=== PATIENT | female | born 1950 | race African-American/Black ===

== ENCOUNTER 2019-05-15 07:59 | Outpatient (CLI) | payer MEDICARE ==
--- NOTE | 2019-05-15 08:48 | RAD ---
LEFT KNEE 4 VIEWS: Date: 05/15/19 HISTORY: Pain. COMPARISON: None. FINDINGS: Joint spaces are preserved. No fracture or malalignment. There is presumed enthesopathic change along the posterior proximal tibia. Correlate clinically. IMPRESSION: Presumed enthesopathic change along the posterior proximal tibia. Correlate clinically. Further evalu ation with MRI if clinically warranted. POS: CHLOE
== END 2019-05-15 08:00 | disposition home or self-care (01) ==
LOC: RAD-FRANK 07:59
PROVIDERS: ATTEND Nurse Practitioner Family
DX: M25.562 Pain in left knee (principal)

== ENCOUNTER 2019-05-17 11:22 | Emergency (ER) | payer MEDICARE | END 2019-05-17 13:15 | disposition home or self-care (01) | LOC: ERS 11:22 | DX: M79.605 Pain in left leg (principal); I10 Essential (primary) hypertension; M19.90 Unspecified osteoarthritis, unspecified site; Z79.899 Other long term (current) drug therapy; Z86.73 Personal history of transient ischemic attack (TIA), and cerebral infarction without residual deficits | CPT/HCPCS: 99283 ==

== ENCOUNTER 2019-11-10 00:54 | Emergency (ER) | payer MEDICAID, MEDICARE ==
[2019-11-10] MEDS ORDERED: Ondansetron ODT 4 MG TAB ONE (01:21)
[2019-11-10 01:23] LABS: #Basophils 0.1 thou/uL (0.0-0.2); #Eosinphils 0.1 thou/uL (0.0-0.7); #Lymphocytes 1.9 thou/uL (1.20-3.40); #Monocytes 0.4 thou/uL (0.11-0.59); #Neutrophils 3.3 thou/uL (1.40-6.50); %Basophils 1.5 % (0.0-1.0); %Eosinophils 1.8 % (0.0-10.0); %Lymphocytes 32.4 % (21.0-51.0); %Monocytes 7.4 % (0.0-10.0); %Neutrophils 56.8 % (42.0-75.0); Hemoglobin 13.5 g/dL (12.0-16.0); Mean Corpuscular Hemoglobin 30.6 pg (27.0-31.0); Mean Corpuscular Volume 92.7 fL (78.0-98.0); Mean Platelet Volume 8.2 fL (7.4-10.4); Platelet Count 190 thou/uL (130-400); RBC Distribution Width 12.1 % (11.5-14.5); White Blood Cell (WBC) Count 5.9 thou/uL (4.8-10.8)
[2019-11-10 01:44] LABS: ALT (SGPT) 14 U/L (8-55); AST (SGOT) 22 U/L (5-34); Alkaline Phosphatase 64 U/L (40-110); Anion Gap 13 mmol/L (10-20); BUN (Urea Nitrogen) 16 mg/dL (9.8-20.1); Bilirubin, Total 0.3 mg/dL (0.2-1.2); Calc. Creatinine Clearance 0 mL/min (70-130); Calcium 9.4 mg/dL (7.8-10.44); Carbon Dioxide 26 mmol/L (23-31); Chloride 103 mmol/L (98-107); Estimated GFR-MDRD Greater than 90; Globulin 3.3 g/dL (2.4-3.5); Glucose 100 mg/dL (80-115); Lipase 32 U/L (8-78); Potassium 3.4 mmol/L (3.5-5.1); Protein, Total 7.3 g/dL (6.0-8.3); Sodium 139 mmol/L (136-145)
[2019-11-10 02:51] LABS: Bilirubin Negative (Negative); Blood, Urine Trace (Negative); Clarity Clear (Clear); Glucose, Urine (Dipstick) Normal (Negative); Leukocyte Negative Leu/uL (Negative); Nitrite Negative (Negative); Protein, Urine (Dipstick) Negative (Neg-Trace); RBC/HPF 0-3 HPF (0-3); Squamous Epithelial 0-3 HPF (0-3); Urobilinogen Normal mg/dL (Less than 2); WBC/HPF 0-3 HPF (0-3)
--- NOTE | 2019-11-10 07:46 | CT ---
PRELIMINARY REPORT/[facility]/EMERGENCY AFTER HOURS PROCEDURE: Receipt of this report by the clinical staff was confirmed with Aida Flynn MD by Keesha Morales cca on Nov 10, 2019 02:12:00 SKIFF OPERATOR. Addendum electronically signed by Olivia Morales on November 10, 2019 2:13:20 AM SKIFF OPERATOR EXAM: CT Head Without Intravenous Contrast. CLINICAL HISTORY: Pt. c/o dizziness TECHNIQUE: Axial computed tomography images of the head/brain without intravenous contrast. COMPARISON: None provided. FINDINGS: BRAIN: No acute intraparenchymal hemorrhage. No mass lesion. No midline shift or extra-axial collecti on. Hypodensity within the right basal ganglia most consistent with old lacunar infarct. Diffuse patchy white matter hypodensity within the subcortical and periventricular white matter predominant w ithin the frontal lobes. VENTRICLES: No hydrocephalus. ORBITS: The orbits are unremarkable. SINUSES AND MASTOIDS: The paranasal sinuses and mastoid air cells are clear. SOFT TISSUES: No significant facial or scalp soft tissue swelling evident. No radiopaque foreign body is seen. BONES: No acute skull fracture. IMPRESSION: 1. No acute intracranial hemorrhage. 2. Periventricular subcortical white matter hypodensities which is most commonly related to chronic microvascular ischemic changes, however given the advanced nature of these changes, other considerations for white matter disease are broad and include demyelinating disease, metastatic disea se and encephalopathy. Correlate with any known clinical history and prior imaging if available and consider further evaluation with MRI. 3. Possible old lacunar infarct within the right basal ganglia. ELECTRONICALLY SIGNED BY: Marshal Currie M.D. Nov 10, 2019 2:08:40 AM SKIFF OPERATOR FINAL REPORT CT BRAIN NONCONTRAST: DATE: 11/10/2019. TIME: 1:28 AM. HISTORY: A 69-year-old female with dizziness. FINDINGS: There is no evidence of acute intra-axial or extra-axial hemorrhage. There is no midline shift or any other mass effect. There is no extra-axial fluid collection. There is no evidence of obstructive hydrocephalus. Calvarium is intact. There is diffuse brain parenchymal volume loss. There are low att enuation areas in the white matter. These are nonspecific, but in a patient of this age, they are probably chronic ischemic white matter changes due to microvascular atherosclerosis. There is an old lacunar infarction in the right basal ganglia also involving the right caudate head. Agree with preliminary report by [facility]. IMPRESSION: 1) No acute intracranial findings. 2) involutional changes and severe chronic ischemic white matter changes. 3) old lacunar infarction in right corpus striatum. Transcribed Date/Time: 11/10/2019 7:54 AM
== END 2019-11-10 03:17 | disposition home or self-care (01) ==
LOC: ERS 00:54
DX: R11.0 Nausea (principal); R42 Dizziness and giddiness; M19.90 Unspecified osteoarthritis, unspecified site; I10 Essential (primary) hypertension; Z86.73 Personal history of transient ischemic attack (TIA), and cerebral infarction without residual deficits; Z79.899 Other long term (current) drug therapy
CPT/HCPCS: 36415; 70450; 80053; 81003; 81015; 83690; 85025; 96360; Q0162

== ENCOUNTER 2020-06-29 07:38 | Emergency (ER) | payer SELFPAY ==
[2020-06-29 08:18] LABS: #Basophils 0.1 thou/uL (0.0-0.2); #Eosinphils 0.1 thou/uL (0.0-0.7); #Lymphocytes 1.3 thou/uL (1.20-3.40); #Monocytes 0.4 thou/uL (0.11-0.59); #Neutrophils 2.3 thou/uL (1.40-6.50); %Basophils 1.4 % (0.0-1.0); %Eosinophils 1.9 % (0.0-10.0); %Lymphocytes 30.9 % (21.0-51.0); %Neutrophils 55.8 % (42.0-75.0); Hemoglobin 12.2 g/dL (12.0-16.0); Mean Corpuscular HGB CONC 32.8 g/dL (32.0-36.0); Mean Corpuscular Hemoglobin 31.1 pg (27.0-31.0); Mean Corpuscular Volume 94.8 fL (78.0-98.0); Mean Platelet Volume 8.3 fL (7.4-10.4); Platelet Count 193 thou/uL (130-400); Red Blood Cell (RBC) Count 3.92 mill/uL (4.20-5.40); White Blood Cell (WBC) Count 4.2 thou/uL (4.8-10.8)
[2020-06-29 08:44] LABS: ALT (SGPT) 9 U/L (8-55); AST (SGOT) 22 U/L (5-34); Albumin 3.6 g/dL (3.4-4.8); Alkaline Phosphatase 61 U/L (40-110); Anion Gap 12 mmol/L (10-20); BUN (Urea Nitrogen) 8 mg/dL (9.8-20.1); Bilirubin, Total 0.3 mg/dL (0.2-1.2); Calc. Creatinine Clearance 0 mL/min (70-130); Calcium 8.7 mg/dL (7.8-10.44); Carbon Dioxide 29 mmol/L (23-31); Chloride 103 mmol/L (98-107); Estimated GFR-MDRD 88; Globulin 2.7 g/dL (2.4-3.5); Glucose 115 mg/dL (80-115); Lipase 25 U/L (8-78); Potassium 3.5 mmol/L (3.5-5.1); Protein, Total 6.3 g/dL (6.0-8.3); Sodium 140 mmol/L (136-145)
--- NOTE | 2020-06-29 09:27 | RAD ---
RADIOGRAPH CHEST 1 VIEW: DATE: 06/29/2020 TIME: 0809 HOURS HISTORY: 70-year-old female with chest pain and nausea. FINDINGS: There are no air space densities, pulmonary edema, pneumothorax, or cardiomegaly. The lateral costop hrenic angles are sharp. IMPRESSION: No acute cardiopulmonary findings. angel [] POS: AH
[2020-06-29 10:56] LABS: Troponin I Less than 0.010 ng/mL (< 0.028)
--- NOTE | 2020-07-03 11:03 | EKG ---
Test Reason : CP Blood Pressure : / mmHG Vent. Rate : 061 BPM Atrial Rate : 061 BPM P-R Int : 136 ms QRS Dur : 074 ms QT Int : 414 ms P-R-T Axes : 060 006 047 degrees QTc Int : 416 ms Normal sinus rhythm Normal ECG Confirmed by ROOSEVELT CRUZ DO ([id number]), editor [employer] journal NELIA LANDRY ([id number]) on 07/03/2020 11:02:36 AM Referred By: Confirmed By:ROOSEVELT CRUZ DO
== END 2020-06-29 12:12 | disposition home or self-care (01) ==
LOC: EDBD → ERS 07:38
DX: R07.9 Chest pain, unspecified (principal); M19.90 Unspecified osteoarthritis, unspecified site; I10 Essential (primary) hypertension; Z79.899 Other long term (current) drug therapy
CPT/HCPCS: 36415; 71045; 80053; 83690; 84484; 85025; 93005

== ENCOUNTER 2020-07-05 01:58 | Emergency (ER) | payer SELFPAY ==
[2020-07-05] MEDS ORDERED: Acetaminophen 325 MG TAB ONE (02:17)
--- NOTE | 2020-07-05 07:20 | CT ---
PRELIMINARY REPORT/[facility]/EMERGENCY AFTER HOURS PROCEDURE: EXAM: CT BRAIN WO CON HISTORY: ER 4.... 70F with PMHx of HTN, OA, hx of hemorrhagic stroke that presents via EMS for headac he/diarrhea. Patient reports for the past week she has felt some nausea. Pt states she was laying in bed and started to get a headache across her forehead that would not go away, accompanied by some dizziness COMPARISON: CT\SR - CT BRAIN WO CON - 11/10/2019 01:28 AM GREY STOCK RECORDER FINDINGS: No new focal parenchymal hypodensity to suggest acute ischemia or cerebral edema. No hydro cephalus, midline shift or mass-effect. Stable right basal ganglia chronic lacunar infarct. Stable periventricular white matter hypodensities bilaterally, most pronounced within the frontal lob es. No extra-axial fluid collections. Paranasal sinuses and mastoids are clear. Calvarium is intact. IMPRESSION: 1. No acute intracranial pathology. 2. Stable periventricular white matter hypodensities bilaterally. This is most commonly seen as a s equelae of chronic ischemic white matter disease. Demyelinating disease can have a similar appearance. Recommend correlation with clinical history and examination. Given stability of these f indings, further evaluation with MRI can be considered on a nonemergent basis. ELECTRONICALLY SIGNED BY: Gisselle Whitfield MD Jul 05, 2020 2:45:57 AM CDT FINAL REPORT HEAD CT WITHOUT CONTRAST: HISTORY: Headache. COMPARISON: 11/10/2019. FINDINGS: Hemorrhage: No intraparenchymal hemorrhage or extra-axial hematoma. Brain parenchyma: Cortical brandon-white matter differentiation is preserved. No mass effect or midline shift. Basilar cisterns are patent.White matter hypodensities due to chronic small vessel ischemic change. Stable remote lacunar infarct involving the right lentiform nucleus. Ventricular system: Ventricles and sulci are patent and symmetric. Calvarium: Intact. Sinuses and mastoid air cells: Adequate aeration. IMPRESSION: 1. This report is in agreement with initial report by [facility]. 2. No acute intracranial process. Transcribed Date/Time: 07/05/2020 7:35 AM
== END 2020-07-05 03:10 | disposition home or self-care (01) ==
LOC: ERS 01:58
DX: R51.9 Headache, unspecified (principal); R19.7 Diarrhea, unspecified; I10 Essential (primary) hypertension; M19.90 Unspecified osteoarthritis, unspecified site; F17.210 Nicotine dependence, cigarettes, uncomplicated; Z86.73 Personal history of transient ischemic attack (TIA), and cerebral infarction without residual deficits; Z79.899 Other long term (current) drug therapy
CPT/HCPCS: 70450